=== PATIENT | male | born 1960 | race African-American/Black ===

== ENCOUNTER 2016-04-21 13:01 | Emergency (ER) | payer MEDICAID ==
[2015-05-05 17:36] VITALS: BMI 28.2
[~2016-04-21 13:01] MED LIST: LISINOPRIL10 MG PO
== END 2016-04-21 15:56 | disposition home or self-care (01) ==
LOC: D.ER 13:01
DX: R07.89 Other chest pain (principal); J44.9 Chronic obstructive pulmonary disease, unspecified; B19.20 Unspecified viral hepatitis C without hepatic coma; G47.30 Sleep apnea, unspecified; F17.200 Nicotine dependence, unspecified, uncomplicated